=== PATIENT | female | born 1985 | race Caucasian/White ===

== ENCOUNTER 2020-01-06 10:40 | Observation (INO) | payer OTHER ==
[~2020-01-06] VITALS: Ht 149.9 cm; Wt 73.9 kg
[2020-01-06] MEDS ORDERED: METOCLOPRAMIDE HCL 5 MG/ML 2 ML VIAL IVP PRN (10:45)
[2020-01-06] MEDS ORDERED: CITRIC ACID/SODIUM CITRATE 30 ML SOLUTION UDCUP PO PRN (10:45)
[2020-01-06 10:52] VITALS: BP 144/85
[2020-01-06] MEDS ORDERED: PREN-217 PO (11:02)
[2020-01-06] MEDS: RINGERS SOLUTION,LACTATED 1,000 ML IV SCH ×2 (11:20→18:00)
[2020-01-06 11:53] LABS: BASOPHILS % (AUTO) 0.3 % (0.0-2.0); EOSINOPHILS % (AUTO) 0.6 % (1.0-6.0); HEMATOCRIT 37.2 % (36-46); HEMOGLOBIN 12.6 g/dL (12.0-16.0); LYMPHOCYTES # (AUTO) 1.8 K/uL (1.0-4.8); LYMPHOCYTES % (AUTO) 20.9 % (22.0-44.0); MEAN CORPUSCULAR HEMOGLOBIN 30.3 pg (26.0-34.0); MEAN CORPUSCULAR HGB CONC 33.7 G/dL (31.0-37.0); MEAN CORPUSCULAR VOLUME 90 fL (80-100); MONOCYTES # (AUTO) 0.7 K/uL (0.1-1.0); MONOCYTES % (AUTO) 8.5 % (2.0-9.0); NEUTROPHILS % (AUTO) 69.7 % (40.0-70.0); PLATELET COUNT (AUTO) 156 K/uL (150-450); RED BLOOD CELL COUNT(AUTO) 4.15 MIL/uL (4.00-5.20); RED CELL DISTRIBUTION WIDTH 13.7 % (11.5-14.5)
[2020-01-06] MEDS ORDERED: BETAMETHASONE SOLUSPAN 6 MG/ML 5 ML VIAL IM SCH (12:00)
[2020-01-06 12:12] LABS: ANION GAP 11 mmol/L (8-16); CARBON DIOXIDE 20 mmol/L (22-29); CHLORIDE 103 mmol/L (98-107); CREATININE 0.62 mg/dL (0.60-1.30); GLUCOSE,RANDOM 72 mg/dL (70-110); POTASSIUM 3.8 mmol/L (3.5-5.1); SODIUM SERUM 134 mmol/L (136-145); UREA NITROGEN, BLOOD 10 mg/dL (7-18)
[2020-01-06 12:13] LABS: GLOMERULAR FILTR. RATE CALC > 60 mL/min (>60)
[2020-01-06 12:18] LABS: ALANINE AMINOTRANSFERASE 27 U/L (12-78); ALBUMIN 2.2 g/dL (3.4-5.0); ALKALINE PHOSPHATASE 139 U/L (46-116); ASPARTATE AMINOTRANSFERASE 15 U/L (15-37); BILIRUBIN,TOTAL 0.1 mg/dL (0.1-1.0); TOTAL PROTEIN, SERUM 6.5 g/dL (6.4-8.2); URIC ACID 4.3 mg/dL (2.6-7.2)
[2020-01-06] MEDS ORDERED: [UNRECOGNIZED DRUG - CODE] IM (13:04)
[2020-01-06] MEDS ORDERED: DEXA41I IM (13:10)
[2020-01-06] MEDS ORDERED: OXYGEN THERAPY IH SCH (20:00)
[2020-01-06 23:52] LABS: TPROTEIN TIMED,URINE 11 mg/dL
[2020-01-06 23:53] LABS: COLLECTION TIME,URINE 12 HR; TPROTEIN URINE 12HR CALC 165 mg/12HR (0-165)
[2020-01-07] MEDS: RINGERS SOLUTION,LACTATED 1,000 ML IV SCH (00:32)
== END 2020-01-07 08:30 | disposition home or self-care (01) ==
LOC: 4S 10:40
PROVIDERS: ADMIT Obstetrics & Gynecology; ATTEND Obstetrics & Gynecology
DX: O13.3 Gestational [pregnancy-induced] hypertension without significant proteinuria, third trimester (principal); Z3A.36 36 weeks gestation of pregnancy
CPT/HCPCS: 36415; 59025; 80053; 81001; 81050; 84156; 84550; 85025; G0378 ×2; J0702; J7120 ×2

== ENCOUNTER 2020-01-20 10:24 | Inpatient (IN) | payer OTHER ==
[~2020-01-20] VITALS: Ht 150 cm; Wt 75.3 kg
[~2020-01-20 10:24] MED LIST: DEXA41I IM; PREN-217 PO
[2020-01-20 11:01] VITALS: BP 134/83
[2020-01-20 11:25] LABS: BASOPHILS % (AUTO) 0.5 % (0.0-2.0); EOSINOPHILS % (AUTO) 0.1 % (1.0-6.0); HEMATOCRIT 36.8 % (36-46); HEMOGLOBIN 12.3 g/dL (12.0-16.0); LYMPHOCYTES # (AUTO) 1.6 K/uL (1.0-4.8); LYMPHOCYTES % (AUTO) 20.8 % (22.0-44.0); MEAN CORPUSCULAR HEMOGLOBIN 30.4 pg (26.0-34.0); MEAN CORPUSCULAR HGB CONC 33.5 G/dL (31.0-37.0); MEAN CORPUSCULAR VOLUME 91 fL (80-100); MONOCYTES # (AUTO) 0.5 K/uL (0.1-1.0); MONOCYTES % (AUTO) 6.4 % (2.0-9.0); NEUTROPHILS # (AUTO) 5.6 K/uL (1.8-7.7); NEUTROPHILS % (AUTO) 72.2 % (40.0-70.0); PLATELET COUNT (AUTO)-OB 142 K/uL (150-450); RED BLOOD CELL COUNT(AUTO) 4.06 MIL/uL (4.00-5.20); RED CELL DISTRIBUTION WIDTH 13.9 % (11.5-14.5)
[2020-01-20 11:33] LABS: ANION GAP 13 mmol/L (8-16); CALCIUM, TOTAL 8.6 mg/dL (8.8-10.5); CARBON DIOXIDE 20 mmol/L (22-29); CHLORIDE 107 mmol/L (98-107); CREATININE 0.72 mg/dL (0.60-1.30); GLOMERULAR FILTR. RATE CALC > 60 mL/min (>60); GLUCOSE,RANDOM 111 mg/dL (70-110); POTASSIUM 3.8 mmol/L (3.5-5.1); SODIUM SERUM 140 mmol/L (136-145); UREA NITROGEN, BLOOD 12 mg/dL (7-18)
[2020-01-20 11:40] LABS: ALANINE AMINOTRANSFERASE 36 U/L (12-78); ALBUMIN 2.3 g/dL (3.4-5.0); ALKALINE PHOSPHATASE 148 U/L (46-116); ASPARTATE AMINOTRANSFERASE 21 U/L (15-37); BILIRUBIN,TOTAL 0.2 mg/dL (0.1-1.0); TOTAL PROTEIN, SERUM 6.4 g/dL (6.4-8.2)
[2020-01-20 12:10] LABS: CREATININE,URINE RANDOM 158.6 mg/dL (30.0-125.0)
[2020-01-20] MEDS ORDERED: RINGERS SOLUTION,LACTATED 1,000 ML IV PRN (13:32)
[2020-01-20] MEDS ORDERED: OXYTOCIN 30 UNITS/LACT RINGERS 500 ML IV ONE (13:32)
[2020-01-20] MEDS ORDERED: LIDOCAINE/PF 1% 30 ML VIAL INJ PRN (13:45)
[2020-01-20] MEDS ORDERED: DINOPROSTONE 10 MG VAGINAL SUPPOSITORY VG ONE (13:45)
[2020-01-20] MEDS ORDERED: METHYLERGONOVINE MALEATE 0.2 MG/ML VIAL IM PRN (13:45)
[2020-01-20] MEDS ORDERED: CITRIC ACID/SODIUM CITRATE 30 ML SOLUTION UDCUP PO PRN (13:45)
[2020-01-20] MEDS ORDERED: FentaNYL CITRATE-PF 100 MCG/2 ML VIAL IVP PRN (13:45)
[2020-01-20] MEDS ORDERED: METOCLOPRAMIDE HCL 5 MG/ML 2 ML VIAL IVP PRN (13:45)
[2020-01-20] MEDS ORDERED: MISOPROSTOL 25 MCG TABLET PO ONE ×2 (13:45→20:45)
[2020-01-20 15:05] VITALS: BP 147/77
[2020-01-20] MEDS: RINGERS SOLUTION,LACTATED 1,000 ML IV SCH ×2 (15:45→19:33)
[2020-01-20] MEDS ORDERED: PNV1TABL54 PO (18:09)
[2020-01-20] MEDS ORDERED: OXYGEN THERAPY IH SCH (20:00)
[2020-01-21] MEDS ORDERED: MISOPROSTOL 25 MCG TABLET PO ONE (01:15)
[2020-01-21] MEDS: RINGERS SOLUTION,LACTATED 1,000 ML IV SCH ×2 (03:00→11:10)
[2020-01-21] MEDS ORDERED: OXYTOCIN 30 UNITS/LACT RINGERS 500 ML IV PRN (10:37)
[2020-01-21] MEDS ORDERED: KETOROLAC TROMETHAMINE 60 MG/2 ML VIAL IM ONE (12:00)
[2020-01-21] MEDS ORDERED: ONDANSETRON HCL 4 MG/2 ML VIAL IVP ONE (12:00)
[2020-01-21] MEDS ORDERED: DEXAMETHASONE SOD PHOS 4 MG/ML VIAL IVP ONE (12:00)
[2020-01-21] MEDS ORDERED: LIDOCAINE/PF 2% 5 ML VIAL INJ ONE (12:00)
[2020-01-21] MEDS ORDERED: METOCLOPRAMIDE HCL 5 MG/ML 2 ML VIAL IVP ONE (12:00)
[2020-01-21] MEDS ORDERED: ROPIVACAINE HCL/PF 0.2% 100 ML ED ONE (12:39)
[2020-01-21] MEDS ORDERED: MEPERIDINE-PF 25 MG/ML VIAL IVP PRN (13:15)
[2020-01-21] MEDS ORDERED: ONDANSETRON HCL 4 MG/2 ML VIAL IVP PRN ×2 (13:15→16:15)
[2020-01-21] MEDS ORDERED: HYDROmorphone 2 MG/ML SYRINGE IVP PRN (13:15)
[2020-01-21] MEDS ORDERED: DiphenhydrAMINE HCL 50 MG/ML VIAL IVP PRN ×2 (13:15→16:15)
[2020-01-21] MEDS ORDERED: ROPIVACAINE HCL/PF 0.2% 100 ML ED PRN (13:15)
[2020-01-21] MEDS ORDERED: FentaNYL CITRATE-PF 100 MCG/2 ML VIAL IVP PRN (13:15)
[2020-01-21] MEDS ORDERED: OxyCODONE HCL/ACETAMINOPHEN 5-325 MG TABLET PO PRN (16:15)
[2020-01-21] MEDS ORDERED: NALOXONE HCL 0.4 MG/ML VIAL IVP PRN (16:15)
[2020-01-21] MEDS ORDERED: ACETAMINOPHEN 1000 MG/ISO-OSM 100 ML IV ONE ×2 (16:15→19:20)
[2020-01-21] MEDS ORDERED: MIDAZOLAM HCL 2 MG/2 ML VIAL ONE (16:19)
[2020-01-21] MEDS ORDERED: MORPHINE SULFATE/PF 1 MG/ML 10 ML AMP ONE (16:19)
[2020-01-21] MEDS ORDERED: LANOLIN 7 GM OINTMENT TP PRN (17:30)
[2020-01-21] MEDS ORDERED: ACETAMINOPHEN/CODEINE 300-30 MG TABLET PO PRN (17:30)
[2020-01-21] MEDS ORDERED: RINGERS SOLUTION,LACTATED 0 ML IV ONE (19:20)
[2020-01-21] MEDS ORDERED: DEXTROSE 5%-0.45% SODIUM CHL 1,000 ML IV ONE (19:24)
[2020-01-21] MEDS: DEXTROSE 5%-0.45% SODIUM CHL 1,000 ML IV SCH ×2 (19:26→23:50)
[2020-01-21] MEDS ORDERED: OXYGEN THERAPY IH SCH ×3 (20:00)
[2020-01-21] MEDS: KETOROLAC TROMETHAMINE 30 MG/ML VIAL IVP SCH (23:40)
[2020-01-22] MEDS: DEXTROSE 5%-0.45% SODIUM CHL 1,000 ML IV SCH ×2 (03:59→08:31)
[2020-01-22] MEDS: KETOROLAC TROMETHAMINE 30 MG/ML VIAL IVP SCH (05:38)
[2020-01-22] MEDS: MAGNESIUM HYDROXIDE SUSPENSION 30 ML UDCUP PO SCH ×2 (11:33→20:30)
[2020-01-22] MEDS: IBUPROFEN 800 MG TABLET PO SCH ×2 (11:34→18:46)
[2020-01-22 16:22] VITALS: BP 142/87
[2020-01-22] MEDS: ACETAMINOPHEN/CODEINE 300-30 MG TABLET PO PRN ×2 (16:29→20:29)
[2020-01-23] MEDS: IBUPROFEN 800 MG TABLET PO SCH ×5 (03:16→21:15)
[2020-01-23] MEDS: MAGNESIUM HYDROXIDE SUSPENSION 30 ML UDCUP PO SCH ×2 (09:02→21:00)
[2020-01-24] MEDS: IBUPROFEN 800 MG TABLET PO SCH ×3 (03:20→09:41)
[2020-01-24] MEDS ORDERED: PERCT PO (09:55)
[2020-01-24] MEDS ORDERED: IBUP-2071 PO (09:56)
[2020-01-24] MEDS ORDERED: DOCU-275 PO (09:56)
[2020-01-24] MEDS ORDERED: FERR-89 PO (09:56)
== END 2020-01-24 12:55 | disposition home or self-care (01) | DRG 788 ==
LOC: OBSVTOIN 10:24 → 4S 10:24
PROVIDERS: ADMIT Obstetrics & Gynecology; ATTEND Obstetrics & Gynecology
PROC: 10D00Z1 Extraction of Products of Conception, Low, Open Approach (ICD-10-PCS; principal; 2020-01-21)
PROC: 30233S1 Transfusion of Nonautologous Globulin into Peripheral Vein, Percutaneous Approach (ICD-10-PCS; 2020-01-22)
DX: O15.1 Eclampsia complicating labor (principal); O61.9 Failed induction of labor, unspecified; O34.211 Maternal care for low transverse scar from previous cesarean delivery; Z3A.38 38 weeks gestation of pregnancy; Z37.0 Single live birth
CPT/HCPCS: 82570; 84156; 84550; 85461; 86850; 86870; 86900; 86901; J0131; J1100; J1200; J1885; J2250; J2405; J2590; J2765; J2795; J3490; J7120